=== PATIENT | male | born 1960 | race Caucasian/White ===

== ENCOUNTER 2020-08-12 15:04 | Inpatient (IN) | payer OTHER ==
[2020-08-12] MEDS ORDERED: Iopamidol-370 76% 500 ML 1 ML ONE (15:29)
[2020-08-12] MEDS ORDERED: Morphine 4 MG/ML VIAL ONE (16:09)
[2020-08-12] MEDS ORDERED: Ondansetron ODT 4 MG TAB ONE (16:09)
[2020-08-12] MEDS ORDERED: Boostrix 0.5 ML (Tdap) VIAL ONE (16:09)
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
[2020-08-12 17:12] LABS: #Lymphocytes 0.7 thou/uL (1.20-3.40); #Monocytes 0.8 thou/uL (0.11-0.59); #Neutrophils 17.5 thou/uL (1.40-6.50); %Basophils 0.2 % (0.0-1.0); %Eosinophils 0.1 % (0.0-10.0); %Lymphocytes 3.8 % (21.0-51.0); %Monocytes 4.1 % (0.0-10.0); %Neutrophils 91.8 % (42.0-75.0); Hemoglobin 15.6 g/dL (14.0-18.0); Mean Corpuscular Hemoglobin 30.3 pg (27.0-31.0); Mean Corpuscular Volume 89.2 fL (78.0-98.0); Mean Platelet Volume 6.9 fL (7.4-10.4); Platelet Count 218 thou/uL (130-400); Red Blood Cell (RBC) Count 5.15 mill/uL (4.70-6.10); White Blood Cell (WBC) Count 19.1 thou/uL (4.8-10.8)
[2020-08-12 17:37] LABS: ALT (SGPT) 34 U/L (8-55); AST (SGOT) 38 U/L (5-34); Albumin 4.4 g/dL (3.4-4.8); Alkaline Phosphatase 57 U/L (40-110); Anion Gap 16 mmol/L (10-20); BUN (Urea Nitrogen) 24 mg/dL (8.4-25.7); Bilirubin, Total 0.4 mg/dL (0.2-1.2); Calc. Creatinine Clearance 0 mL/min (70-130); Calcium 9.3 mg/dL (7.8-10.44); Carbon Dioxide 26 mmol/L (23-31); Chloride 99 mmol/L (98-107); Estimated GFR-MDRD 69; Globulin 2.7 g/dL (2.4-3.5); Glucose 111 mg/dL (80-115); Potassium 3.9 mmol/L (3.5-5.1); Protein, Total 7.1 g/dL (5.8-8.1); Sodium 137 mmol/L (136-145)
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
[2020-08-12] MEDS ORDERED: traMADol HCl 50 MG TAB PO PRN ×2 (19:15)
[2020-08-12] MEDS ORDERED: Dextrose 5% in Water 1,000 ML IV PRN (19:15)
[2020-08-12] MEDS ORDERED: hydrALAZINE 20 MG/ML VIAL SLOW IVP PRN (19:15)
[2020-08-12] MEDS ORDERED: Dextrose 50% Abboject 50 ML SYRINGE SLOW IVP PRN (19:15)
[2020-08-12] MEDS ORDERED: Sodium Chloride 0.9% 1,000 ML IV SCH (19:15)
[2020-08-12] MEDS ORDERED: Ondansetron PF 4 MG/2 ML Vial IVP PRN (19:15)
[2020-08-12] MEDS ORDERED: Ondansetron ODT 4 MG TAB PO PRN (19:15)
--- NOTE | 2020-08-12 19:16 | RAD ---
PORTABLE CHEST TWO VIEWS LEFT RIBS: 08/12/20 PROVIDED CLINICAL HISTORY: Pain status post injury. FINDINGS: No comparisons. Heart size appears within normal limits for portable technique. There is no focal consolidation evide nt. The supine nature of the examination is not sensitive for detection of pleural fluid or pneumotho rax. There is a mildly displaced left posterolateral fifth and sixth rib fractures. No additional fra cture is evident. No focal consolidation is evident. Postoperative changes are seen involving the dis lola left clavicle. IMPRESSION: Mildly displaced left posterior fifth and sixth rib fractures. Assessment for pneumothorax is limited given the supine nature of the study. POS: GISSEL
[2020-08-12 19:17] VITALS: BMI 24.3
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
[2020-08-12] MEDS: Cyclobenzaprine 10 MG TAB PO PRN (21:19)
[2020-08-12] MEDS: Ibuprofen 600 MG TAB PO SCH (21:20)
[2020-08-12] MEDS: Famotidine 20 MG TAB PO SCH (21:20)
[2020-08-12] MEDS: Acetaminophen 325 MG TAB PO SCH (23:53)
[2020-08-13] MEDS: Cyclobenzaprine 10 MG TAB PO PRN ×2 (05:28→23:40)
[2020-08-13] MEDS: Ibuprofen 600 MG TAB PO SCH ×3 (05:28→21:27)
[2020-08-13] MEDS: Acetaminophen 325 MG TAB PO SCH ×4 (05:28→23:40)
[2020-08-13] MEDS ORDERED: FLU VACC QS2020-21(6MOS UP)/PF 60 MCG/0.5 ML SYRINGE IM ONE (09:00)
[2020-08-13] MEDS: Famotidine 20 MG TAB PO SCH ×2 (09:31→21:28)
--- NOTE | 2020-08-13 10:43 | RAD ---
PORTABLE CHEST: 08/13/20 PROVIDED CLINICAL HISTORY: Pneumothorax. COMPARISON: 08/12/2020 FINDINGS: Previously described left-sided rib fractures are redemonstrated. Small left apical pneumothorax is d emonstrated on this upright study. Left basilar pleural parenchymal opacity likely reflecting pleural fluid with adjacent atelectasis. Heart size appears unchanged. The right lung appears clear. No evid ence for right-sided pneumothorax. IMPRESSION: Small left pneumothorax and left basilar pleural parenchymal opacity. POS: GISSEL
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
[2020-08-13] MEDS: Senokot S 8.6-50 MG TAB PO SCH (21:28)
[2020-08-14] MEDS: Ibuprofen 600 MG TAB PO SCH (06:04)
[2020-08-14] MEDS: Acetaminophen 325 MG TAB PO SCH ×2 (06:04→11:06)
[2020-08-14] MEDS: Famotidine 20 MG TAB PO SCH (08:25)
[2020-08-14] MEDS: Senokot S 8.6-50 MG TAB PO SCH (08:25)
[2020-08-14] MEDS ORDERED: Polyethylene Glycol 3350 17 GM Packet PO SCH (09:00)
[2020-08-14] MEDS ORDERED: Enoxaparin Sodium 40 MG/0.4 ML SYRINGE SC SCH (09:00)
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
--- NOTE | 2020-08-14 11:34 | RAD ---
PORTABLE CHEST: Date: 08/14/2020 COMPARISON: Prior day's exam. HISTORY: Follow-up pneumothorax. FINDINGS: Heart size is within normal limits. Pleural and parenchymal changes in the left base are similar to t he previous exam. I do not definitely appreciate any pneumothorax on today's study. Left-sided rib fr actures again noted. IMPRESSION: 1. Persistent pleural and parenchymal changes in the left base. The blunting to the left costophreni c angle may be slightly more pronounced than on the prior exam. 2. No definitive signs of pneumothorax. POS: TIARA
[2020-08-14 11:36] VITALS: BP 142/80; TEMP 99.3
[2020-08-14 12:52] LABS: SARS-CoV-2 MS2 Positive; SARS-CoV-2 N Gene Negative; SARS-CoV-2 S Gene Negative; SARS-CoV-2 by NAA Not Detected (NotDetected); SARS-CoV-2 orf1ab Negative
== END 2020-08-14 15:45 | disposition home or self-care (01) | DRG 964 ==
LOC: ERS 15:04 → SURG A 17:48
PROVIDERS: ADMIT Surgery; ATTEND Surgery
PROC: 3E0234Z Introduction of Serum, Toxoid and Vaccine into Muscle, Percutaneous Approach (ICD-10-PCS; principal; 2020-08-12)
DX: S27.321A Contusion of lung, unilateral, initial encounter (principal); S32.435A Nondisplaced fracture of anterior column [iliopubic] of left acetabulum, initial encounter for closed fracture; S22.42XA Multiple fractures of ribs, left side, initial encounter for closed fracture; S32.592A Other specified fracture of left pubis, initial encounter for closed fracture; S27.2XXA Traumatic hemopneumothorax, initial encounter; V29.9XXA Motorcycle rider (driver) (passenger) injured in unspecified traffic accident, initial encounter; Z88.5 Allergy status to narcotic agent; Z20.828 Contact with and (suspected) exposure to other viral communicable diseases; Z23 Encounter for immunization
CPT/HCPCS: 70450; 71045; 71260; 72125; 72170; 74177; 80053; 85025; 87635; 90471; 90715; 94640; 96372; J1650; J2270; J7620; Q0162; Q9967; U0003

== ENCOUNTER 2020-08-16 11:50 | Outpatient (CLI) | payer OTHER ==
--- NOTE | 2020-08-16 13:08 | RAD ---
2 views of the chest: 08/16/2020 COMPARISON: 08/13/2020 and 08/14/2020 HISTORY: Reevaluate left-sided pneumothorax FINDINGS: There is dense opacity in the right lung base with blunting of the right costophrenic angle consistent with right lower lobe consolidation/collapse and right pleural effusion. This is similar when compared the 08/14/2020 exam. There is a small pneumothorax in the left upper lobe region which is similar in size when compared to the 11/01/2019 exam. Posterior lateral left-sided mildly displaced rib fractures are noted. Of note, the pleural and parenchymal opacity within the left base has increased since the 08/13/2020 e xam. IMPRESSION: Small left pneumothorax in the upper lobe region. Dense pleural and parenchymal opacity w ithin the left base, worsened. made aware via phone by Dr. Wisdom at 1:00 PM 08/16/2020
== END 2020-08-16 11:51 | disposition home or self-care (01) ==
LOC: BICRAD 11:50
PROVIDERS: ATTEND Surgery
DX: J93.9 Pneumothorax, unspecified (principal); S22.42XA Multiple fractures of ribs, left side, initial encounter for closed fracture; R91.8 Other nonspecific abnormal finding of lung field
CPT/HCPCS: 71046

== ENCOUNTER 2020-10-17 08:14 | Outpatient (CLI) | payer OTHER ==
--- NOTE | 2020-10-17 09:05 | RAD ---
AP PELVIS: HISTORY: Followup of acetabular fracture. COMPARISON: 08/12/2020 exam. FINDINGS: Pelvic ring shows a healing left superior and inferior pubic rami fracture. Some bony sclerosis note d. No other fractures of the bony pelvic ring are seen. IMPRESSION: Evidence for healing of the left superior and inferior pubic rami fractures. POS: [facility]
== END 2020-10-17 08:15 | disposition home or self-care (01) ==
LOC: BICRAD 08:14
PROVIDERS: ATTEND Orthopaedic Surgery
DX: S32.435D Nondisplaced fracture of anterior column [iliopubic] of left acetabulum, subsequent encounter for fracture with routine healing (principal); S32.502D Unspecified fracture of left pubis, subsequent encounter for fracture with routine healing
CPT/HCPCS: 72170

== ENCOUNTER 2024-08-16 09:29 | Outpatient (CLI) | payer MEDICARE ==
[2024-08-16 12:05] LABS: #Basophils 0.04 10x3/uL (0.0-0.2); %Basophils 0.7 % (0.0-1.0); %Eosinophils 1.2 % (0.0-10.0); %Lymphocytes 37.8 % (21.0-51.0); %Monocytes 8.7 % (0.0-10.0); %Neutrophils 51.4 % (42.0-75.0); Hematocrit 45.9 % (42.0-52.0); Hemoglobin 15.4 g/dL (14.0-18.0); Mean Corpuscular HGB CONC 33.6 g/dL (32.0-36.0); Mean Corpuscular Hemoglobin 28.6 pg (27.0-31.0); Mean Corpuscular Volume 85.2 fL (78.0-98.0); Mean Platelet Volume 9.8 fL (7.4-10.4); Platelet Count 219 10x3/uL (130-400); RBC Distribution Width 13.7 % (11.5-14.5); Red Blood Cell (RBC) Count 5.39 mill/uL (4.70-6.10)
[2024-08-16 12:18] LABS: Prothrombin Time 13.6 sec (12.0-14.7)
[2024-08-16 12:19] LABS: PTT 33.7 sec (22.9-36.1)
[2024-08-16 12:27] LABS: Anion Gap 14 mmol/L (10-20); BUN (Urea Nitrogen) 21 mg/dL (8.4-25.7); Calc. Creatinine Clearance 0 mL/min (70-130); Calcium 9.3 mg/dL (7.8-10.44); Carbon Dioxide 24 mmol/L (23-31); Chloride 106 mmol/L (98-107); Estimated GFR 78; Glucose 82 mg/dL (80-115); Potassium 3.9 mmol/L (3.5-5.1); Sodium 140 mmol/L (136-145)
== END 2024-08-16 09:30 | disposition home or self-care (01) ==
LOC: LABBT 09:29
PROVIDERS: ATTEND Internal Medicine Cardiovascular Disease
DX: Z01.812 Encounter for preprocedural laboratory examination (principal); I48.0 Paroxysmal atrial fibrillation
CPT/HCPCS: 80048; 85025; 85610; 85730

== ENCOUNTER 2024-08-18 06:27 | Day surgery (SDC) | payer MEDICARE ==
[2024-08-16 09:46] VITALS: BMI 25.0
[2024-08-18] MEDS ORDERED: Heparin 10,000 UNITS/ 10 ML VIAL ONE (06:55)
[2024-08-18] MEDS ORDERED: Isoproterenol 0.2 MG/1 ML AMP ONE (06:55)
[2024-08-18] MEDS ORDERED: Heparin 25,000 units/D5W 500 ML ONE (06:55)
[2024-08-18] MEDS ORDERED: Protamine Sulfate 50 MG/5 ML VIAL ONE ×2 (06:56→10:46)
[2024-08-18] MEDS ORDERED: Isoproterenol 2 MG in Dextrose 5% in Water 500 ML IVPB SCH (07:00)
[2024-08-18] MEDS ORDERED: Dexamethasone 4 mg/ml Vial ONE ×2 (07:07→08:26)
[2024-08-18] MEDS ORDERED: SUGAMMADEX SODIUM 200 MG/2 ML VIAL ONE (07:07)
[2024-08-18] MEDS ORDERED: PROPOFOL 20 ML ONE ×2 (07:08→10:33)
[2024-08-18] MEDS ORDERED: Glycopyrrolate 0.2 MG/ML 5 ML SYRINGE ONE (07:08)
[2024-08-18] MEDS ORDERED: Rocuronium Bromide 10 MG/ML (10ML VIAL) ONE (07:08)
[2024-08-18] MEDS ORDERED: fentaNYL 50 mcg/mL 1 mL Vial ONE ×2 (07:08→08:16)
[2024-08-18] MEDS ORDERED: PHENYLEPHRINE-NS 100 MCG/ML 10 ML SYRINGE ONE (07:08)
[2024-08-18] MEDS ORDERED: Ondansetron PF 4 MG/2 ML Vial ONE (07:08)
[2024-08-18] MEDS ORDERED: Esmolol 100 MG/10 ML VIAL ONE (08:16)
[2024-08-18] MEDS ORDERED: Phenylephrine 40 MG/NS 250 ML 250 ML ONE (08:38)
== END 2024-08-18 15:05 | disposition home or self-care (01) ==
LOC: SDC 06:27
PROVIDERS: ATTEND Internal Medicine Cardiovascular Disease
PROC: 02583ZZ Destruction of Conduction Mechanism, Percutaneous Approach (ICD-10-PCS; principal; 2024-08-18)
DX: I48.19 Other persistent atrial fibrillation (principal); J45.909 Unspecified asthma, uncomplicated; Z88.5 Allergy status to narcotic agent; Z88.8 Allergy status to other drugs, medicaments and biological substances; Z79.82 Long term (current) use of aspirin; Z79.01 Long term (current) use of anticoagulants
CPT/HCPCS: 85347 ×2; 93005; 93623; 93656; 93657; C1730; C1732; C1733; C1759; C1760 ×3; C1766; C1769; C1894 ×2; J1100; J1644 ×2; J2405; J2704; J2720; J3010; 93010; J7070